=== PATIENT | male | born 1945 | race Caucasian/White ===

== ENCOUNTER → 2016-11-22 | Outpatient (CLI) | payer OTHER ==
--- NOTE | 2016-11-22 10:14 | EKG ---
[facility] Measurements Intervals [place] Rate: 61 P: 37 CT: 193 QRS: -28 QRSD: 98 T: 2 QT: 411 QTc: 414 Interpretive Statements SINUS RHYTHM BORDERLINE LEFT AXIS DEVIATION [QRS AXIS < -20] MODERATE VOLTAGE CRITERIA FOR LVH, CONSIDER NORMAL VARIANT [MEETS CRITERIA IN ONE OF: R(aVL), S(V1), R(V5), R(V5/V6)+S(V1)] No previous ECG available for comparison Electronically Signed On 11-22-16 12:34:48 MST by Shayne Xavier MD [email or web address]
[2016-11-22 14:58] LABS: HEMATOCRIT 49.4 % (42.0-52.0); HEMOGLOBIN 16.5 g/dL (14.0-18.0); MEAN CORPUSCULAR HEMOGLOBIN 32.4 PG (27-31); MEAN CORPUSCULAR HGB CONC 33.4 g/dL (33-37); MEAN PLATELET VOLUME 10.3 FL (7.4-12.2); RDW COEFFICIENT OF VARIATION 13.5 % (11.5-14.5); RED BLOOD COUNT 5.1 10^6/uL (4.70-6.10); WHITE BLOOD COUNT 10.58 10^3/uL (4.8-10.8)
[2016-11-22 15:01] LABS: BUN/CREATININE RATIO 13.84 (6-20); CALCIUM 9.7 mg/dL (8.7-10.7); CREATININE 1.3 mg/dL (0.70-1.50); POTASSIUM 5.3 meq/L (3.8-5.2)
== END ==
LOC: EKG 10:11
DX: H26.8 Other specified cataract (principal); I10 Essential (primary) hypertension; F17.200 Nicotine dependence, unspecified, uncomplicated
CPT/HCPCS: 80048; 85027; 93005; 93010